=== PATIENT | male | born 1990 | race Two or more races ===

== ENCOUNTER 2024-02-15 16:52 | Emergency (ER) | payer MEDICAID ==
[~2024-02-15] VITALS: Ht 177.8 cm; Wt 68.0 kg
[2024-02-15 17:21] VITALS: O2SAT 99
[2024-02-15] MEDS ORDERED: IBUP-2029 MT (18:06)
[2024-02-15] MEDS: IBUPROFEN 600MG TABLET PO ONE (18:51)
[2024-02-15 18:53] VITALS: BP 108/76; PULSE 69; RESP 18; TEMP 36.50292; O2SAT 98
== END 2024-02-15 18:54 | disposition home or self-care (01) ==
LOC: ER 16:52
DX: M25.511 Pain in right shoulder (principal); E11.9 Type 2 diabetes mellitus without complications; Z98.890 Other specified postprocedural states
CPT/HCPCS: 73030; 99283